=== PATIENT | male | born 1950 | race Caucasian/White ===

== ENCOUNTER 2024-10-05 08:40 | Emergency (ER) | payer MEDICARE ==
[2024-10-05 09:57] LABS: BASE EXCESS VENOUS 3.5 mm/L; BICARBONATE,VENOUS 27.7 mmol/L; O2 SATURATION VENOUS 76.5; OXYHEMOGLOBIN 74.7 %; PCO2 VENOUS 42.1 mm/Hg; PH,VENOUS 7.434 (7.350-7.450); PO2 VENOUS 39.8 mm/Hg; TOTAL HEMOGLOBIN 15.9 g/dL (13.5-18.0)
[2024-10-05 09:59] LABS: BASOPHILS ABSOLUTE AUTO 0.04 K/uL (0.00-0.10); BASOPHILS PERCENT AUTO 0.6 % (0.1-1.3); EOSINOPHILS ABSOLUTE AUTO 0.30 K/uL (0.00-0.40); EOSINOPHILS PERCENT AUTO 4.4 % (0.0-5.4); IMMATURE GRAN PERCENT AUTO 0.1 % (0.0-0.7); LYMPHOCYTES ABSOLUTE AUTO 1.17 K/uL (0.8-3.3); LYMPHOCYTES PERCENT AUTO 17.2 % (11.4-47.7); MONOCYTES ABSOLUTE AUTO 0.79 K/uL (0.20-0.90); MONOCYTES PERCENT AUTO 11.6 % (3.3-12.6); NEUTROPHILS ABSOLUTE AUTO 4.49 K/uL (1.0-7.6); NEUTROPHILS PERCENT AUTO 66.1 % (40.0-78.1); PLATELET COUNT,PLT 164 K/uL (130-375); RED BLOOD CELL COUNT 4.42 M/uL (4.14-5.76); WHITE BLOOD CELL COUNT,WBC 6.8 K/uL (3.2-11.0)
[2024-10-05 10:00] LABS: IMMATURE GRAN ABSOLUTE AUTO 0.01 K/uL (0.00-0.23)
[2024-10-05 10:20] LABS: INR 1.0
[2024-10-05 10:29] LABS: A/G RATIO 1.1 (1.2-2.2); ALANINE AMINOTRANSFERASE,ALT 40 U/L (12-78); ASPARTATE AMNIOTRANSFERASE,AST 23 U/L (15-37); BILIRUBIN TOTAL 0.6 mg/dL (0.2-1.0); BLOOD UREA NITROGEN,BUN 32 mg/dL (7-18); CARBON DIOXIDE,CO2 29 mmol/L (21-32); CHLORIDE,CL 103 mmol/L (100-108); CREATININE 1.1 mg/dL (0.8-1.3); EST CRCL DRUG DOSING (CG) 61.76 mL/min; ESTIMATED GFR 71 mL/min (>60); GLUCOSE RANDOM 115 mg/dL (74-106); POTASSIUM,K 4.1 mmol/L (3.6-5.2); PRO B-TYPE NATRIUR PEPT,BNPPRO 114 pg/mL (5-125); PROTEIN TOTAL,TP 7.2 g/dL (6.4-8.2); SODIUM,NA 141 mmol/L (140-148); TROPONIN I HIGH SENSITIVITY 7.7 pg/mL (<=60.3)
== END 2024-10-05 11:33 | disposition home or self-care (01) ==
LOC: JP.ED 08:40
DX: J45.21 Mild intermittent asthma with (acute) exacerbation (principal); Z79.899 Other long term (current) drug therapy
CPT/HCPCS: 36415; 71046; 80053; 82803; 83605; 83880; 84484; 85025; 85379; 85610; 93005; 93010; 94640; 99284; 99285; A9270